=== PATIENT | male | born 1965 | race Caucasian/White ===

== ENCOUNTER 2018-07-12 09:18 | Emergency (ER) | payer SELFPAY ==
[~2018-07-12] VITALS: Ht 170.2 cm; Wt 77.1 kg
[2018-07-12 09:32] VITALS: BP 127/86
[2018-07-12] MEDS: IBUPROFEN 800 MG TAB PO ONE (11:02)
[2018-07-12 11:23] VITALS: BP 132/89
== END 2018-07-12 11:23 | disposition home or self-care (01) ==
LOC: MED 09:18
DX: M54.30 Sciatica, unspecified side (principal); Z88.0 Allergy status to penicillin
CPT/HCPCS: 73502; 99284; Q0092